=== PATIENT | male | born 1980 | race Hispanic/Latino ===

== ENCOUNTER 2021-02-14 08:14 | Emergency (ER) | payer OTHER | END 2021-02-14 10:28 | disposition home or self-care (01) | LOC: ERS 08:14 | DX: S40.012A Contusion of left shoulder, initial encounter (principal); E11.9 Type 2 diabetes mellitus without complications; I10 Essential (primary) hypertension; F17.210 Nicotine dependence, cigarettes, uncomplicated; Z79.899 Other long term (current) drug therapy; V89.2XXA Person injured in unspecified motor-vehicle accident, traffic, initial encounter | CPT/HCPCS: 71045 ==

== ENCOUNTER 2023-05-24 12:54 | Emergency (ER) | payer BC, OTHER ==
[2023-05-24] MEDS ORDERED: CEFAZOLIN 2 GM VIAL ONE (14:24)
[2023-05-24] MEDS ORDERED: Sodium Chloride 0.9% 100 ML ONE (14:24)
[2023-05-24] MEDS ORDERED: HYDROcodone/Acetaminophen 10/325 mg Tablet ONE (14:38)
[2023-05-24] MEDS ORDERED: HYDROcodone/Acetaminophen 5/325 mg Tablet ONE (14:43)
[2023-05-24] MEDS ORDERED: Boostrix 0.5 ML (Tdap) VIAL (>/=7 yrs of age) ONE (14:46)
[2023-05-24] MEDS ORDERED: Morphine 4 MG/ML VIAL ONE (15:34)
== END 2023-05-24 16:41 | disposition short-term general hospital (02) ==
LOC: ERS 12:54
DX: S63.434A Traumatic rupture of volar plate of right ring finger at metacarpophalangeal and interphalangeal joint, initial encounter (principal); E11.9 Type 2 diabetes mellitus without complications; I10 Essential (primary) hypertension; E78.5 Hyperlipidemia, unspecified; F17.210 Nicotine dependence, cigarettes, uncomplicated; Z79.4 Long term (current) use of insulin; Z79.84 Long term (current) use of oral hypoglycemic drugs; Z79.899 Other long term (current) drug therapy; W23.1XXA Caught, crushed, jammed, or pinched between stationary objects, initial encounter
CPT/HCPCS: 64450; 90471; 90715; 96365; 96375; J2270; J3490